=== PATIENT | male | born 1985 | race African-American/Black ===

== ENCOUNTER 2024-12-21 14:15 | Emergency (ER) | payer MEDICAID ==
[~2024-12-21] VITALS: Ht 172.7 cm; Wt 70.0 kg
[2024-12-21 14:20] VITALS: BP 134/82; PULSE 72; RESP 16; TEMP 37.2; O2SAT 98
== END 2024-12-21 19:07 | disposition left against medical advice (07) ==
LOC: ER 14:15
DX: R60.0 Localized edema (principal); Z53.21 Procedure and treatment not carried out due to patient leaving prior to being seen by health care provider

== ENCOUNTER 2024-12-21 22:18 | Emergency (ER) | payer MEDICAID ==
[~2024-12-21] VITALS: Ht 160 cm; Wt 72.0 kg
[2024-12-21 22:28] VITALS: BP 151/108; RESP 16; TEMP 36.8; O2SAT 99
[2024-12-21 22:35] VITALS: PULSE 61; O2SAT 98
[2024-12-22 00:24] VITALS: TEMP 98.3
[2024-12-22] MEDS: ACETAMINOPHEN 325MG TABLET PO ONE (00:24)
== END 2024-12-22 01:48 | disposition left against medical advice (07) ==
LOC: ER 22:26
DX: M79.672 Pain in left foot (principal); M25.511 Pain in right shoulder; I10 Essential (primary) hypertension; F10.90 Alcohol use, unspecified, uncomplicated; F12.90 Cannabis use, unspecified, uncomplicated; Y90.9 Presence of alcohol in blood, level not specified
CPT/HCPCS: 73030; 73630; 99284